=== PATIENT | male | born 1965 | race Caucasian/White ===

== ENCOUNTER → 2025-05-24 | Outpatient (CLI) | payer OTHER, SELFPAY ==
[2025-05-25 14:08] LABS: PSA, Free 0.40 ng/mL; PSA, Free % 22.1 % (.); PSA, Total Ultrasensitive 1.810 ng/mL (0.000-4.000)
== END | disposition home or self-care (01) ==
LOC: LAB 08:37
PROVIDERS: PCP Nurse Practitioner Family; Referring Provider Urology; Visit Provider Urology
DX: R97.20 Elevated prostate specific antigen [PSA] (principal)
CPT/HCPCS: 36415; 84153; 84154